=== PATIENT | female | born 1990 | race Caucasian/White ===

== ENCOUNTER 2017-10-24 20:52 | Emergency (ER) | payer OTHER ==
[~2017-10-24] VITALS: Ht 182.9 cm; Wt 149.7 kg
[~2017-10-24 20:52] MED LIST: ABAC300; AMOX500 PO; ARIP10 PO; CEPH500 PO; CETI5; CITA20; CITA20 PO; Cleocin HCl150 MG PO; DIPH50; DIPH50 PO; DOXY100T53 PO; GUAPHELA PO; HYDACE5; HYDACE5 PO; HYDR1TAB94 PO; IBUP800; IBUP800 PO; LEVOTHYROXINE; METF500 PO; METF500C PO; MULVITMINE PO; MUPI2TO TOP; NEOPOLHCSU OT; PENVK500 PO; PRED10 PO; Pepcid40 MG PO; RXCLIN PO; RXHYDACE PO; TRAM50 PO; Ultram50 MG PO; Vancocin HCL1000 M1 IV; Zofran Odt8 MG SL
== END 2017-10-25 00:15 | disposition left against medical advice (07) ==
LOC: ER 20:52
DX: Z53.21 Procedure and treatment not carried out due to patient leaving prior to being seen by health care provider (principal)

== ENCOUNTER 2019-03-03 19:01 | Emergency (ER) | payer OTHER ==
[~2019-03-03] VITALS: Ht 182.9 cm; Wt 156.5 kg
[~2019-03-03 19:01] MED LIST changes: +LEVSOD125 PO; +SPIR25 PO; +Veetids 500500 MG PO
[2019-03-03 20:12] LABS: Influenza A Negative (NEGATIVE); Influenza B Negative (NEGATIVE)
== END 2019-03-03 20:45 | disposition home or self-care (01) ==
LOC: ER 19:01
PROVIDERS: Physician Assistant
DX: J11.1 Influenza due to unidentified influenza virus with other respiratory manifestations (principal); E03.9 Hypothyroidism, unspecified; Z88.1 Allergy status to other antibiotic agents; Z88.0 Allergy status to penicillin; Z79.899 Other long term (current) drug therapy; Z79.84 Long term (current) use of oral hypoglycemic drugs
CPT/HCPCS: 87081; 87147; 87430; 87804; 99283; J1100

== ENCOUNTER 2019-10-07 14:55 | Emergency (ER) | payer BC, OTHER ==
[~2019-10-07] VITALS: Ht 182.9 cm; Wt 170.1 kg
[2019-10-07] MEDS ORDERED: HYDROCODONE-AC1 EAC5 PO (15:53)
[2019-10-07] MEDS ORDERED: Cipro500 MG PO (15:53)
[2019-10-07] MEDS ORDERED: NEOPOLDEXS (15:54)
[2019-10-07] MEDS ORDERED: Percocet 7.5-31 EACH PO (16:24)
== END 2019-10-07 17:54 | disposition home or self-care (01) ==
LOC: ER 14:55
DX: H61.002 Unspecified perichondritis of left external ear (principal); Z88.0 Allergy status to penicillin; Z88.1 Allergy status to other antibiotic agents; E03.9 Hypothyroidism, unspecified; Z79.84 Long term (current) use of oral hypoglycemic drugs; Z79.899 Other long term (current) drug therapy; Z86.14 Personal history of Methicillin resistant Staphylococcus aureus infection
CPT/HCPCS: 64450; 99282-25

== ENCOUNTER 2021-02-12 13:35 | Emergency (ER) | payer OTHER ==
[~2021-02-12] VITALS: Ht 182.9 cm; Wt 170.1 kg
[~2021-02-12 13:35] MED LIST changes: +Cipro500 MG PO; +HYDROCODONE-AC1 EAC5 PO; +NEOPOLDEXS; +Percocet 7.5-31 EACH PO
[2021-02-12 14:46] LABS: BASOPHILS ABSOLUTE AUTO 0.04 K/mm3 (0.00-0.23); BASOPHILS PERCENT AUTO 0 % (0-2); EOSINOPHILS ABSOLUTE AUTO 0.17 K/mm3 (0.00-0.68); EOSINOPHILS PERCENT AUTO 1 % (0-6); Hematocrit 40.1 % (33.0-51.0); Hemoglobin 13.6 g/dL (11.5-16.0); IMMATURE GRAN ABSOLUTE AUTO 0.04 K/mm3 (0.00-0.10); IMMATURE GRAN PERCENT AUTO 0 % (0-1); LYMPHOCYTES ABSOLUTE AUTO 2.44 K/mm3 (0.84-5.20); LYMPHOCYTES PERCENT AUTO 19 % (21-46); MONOCYTES ABSOLUTE AUTO 0.68 K/mm3 (0.16-1.47); MONOCYTES PERCENT AUTO 5 % (4-13); Mean Corpuscular HGB 28.5 pg (26.0-34.0); Mean Corpuscular HGB Conc 33.9 g/dL (31.5-36.5); Mean Corpuscular Volume 84 fL (80-100); Mean Platelet Volume 9.3 fL (9.1-12.4); NEUTROPHILS ABSOLUTE AUTO 9.58 K/mm3 (1.96-9.15); NEUTROPHILS PERCENT AUTO 74 % (41-73); Platelet Count 404 K/mm3 (150-400); RDW Coefficient Variation 13.4 % (11.7-14.2); Red Blood Cell Count 4.78 M/mm3 (3.80-5.20); White Blood Cell Count 12.95 K/mm3 (4.00-11.30)
[2021-02-12 14:53] LABS: IMMATURE RETIC FRACTION 14.1 % (2.3-16.0); RETIC HGB EQUIVALENT 33.7 pg (28.20-36.60); RETICULOCYTE ABSOLUTE 0.1192 M/mm3 (0.0200-0.1100); RETICULOCYTE COUNT PERCENT 2.52 % (0.50-2.50)
[2021-02-12 14:58] LABS: International Normalized Ratio 0.98; Prothrombin Time Results 10.3 Sec (9.7-11.5)
[2021-02-12 15:00] LABS: Source, Urine Clean Catch
[2021-02-12 15:09] LABS: Appearance, Urine Clear (Clear); Bilirubin, Urine Neg (Neg); Blood, Urine Neg (Neg); Color, Urine Yellow (P-Yellow); Glucose Qualitative, Urine Neg (Neg); Ketones, Urine Neg (Neg); Leukocyte Esterase, Urine 1+ (Neg); Nitrite, Urine Neg (Neg); Protein, Urine 1+ (Neg); Specific Gravity, Urine 1.025 (1.003-1.022); Urobilinogen, Urine NORM (Normal)
[2021-02-12 15:19] LABS: Alanine Aminotransfer (ALT/SGP 31 U/L (12-78); Albumin, Blood 3.3 g/dL (3.4-5.0); Albumin/Globulin Ratio 0.7 (0.8-1.8); Alk Phos 76 U/L (50-136); Anion Gap 5 mmol/L (6-16); Aspartate Aminotrans (AST/SGOT 17 U/L (12-37); Bilirubin, Total 0.6 mg/dL (0.1-1.0); Blood Urea Nitrogen 10 mg/dL (8-24); Bun/Creatinine Ratio 14.6 (12.0-20.0); CO2, Blood 26 mmol/L (21-32); Calcium, Blood 9.3 mg/dL (8.5-10.1); Chloride, Blood 105 mmol/L (98-108); Creatinine, Blood 0.69 mg/dL (0.40-1.00); Globulin, Blood 4.7 g/dL (2.2-4.0); Glomerular Filtration Rate >60 (60-); Glucose, Blood 110 mg/dL (70-99); Potassium, Blood 3.7 mmol/L (3.5-5.5); Sodium, Blood 136 mmol/L (136-145)
[2021-02-12 15:31] LABS: Beta HCG, Quantitative, Serum 72343 mIU/mL (0-3)
[2021-02-12 15:40] LABS: Bacteria Few /hpf; Red Blood Cells, Urine 0-2 /hpf (0-2); Squamous Epithelial Cells Mod /hpf (Few); White Blood Cells, Urine 0-2 /hpf (0-5)
[2021-02-12 15:42] LABS: Mucus Mod (0-Heavy)
[2021-02-12] MEDS ORDERED: Bupropion HCl75 MG PO (16:31)
[2021-02-12] MEDS ORDERED: LAMO100 PO (16:32)
[2021-02-12] MEDS ORDERED: EUTHYROX50 MCG PO (16:32)
[2021-02-12] MEDS ORDERED: ONDA4 PO ×2 (19:13→19:36)
[2021-02-12] MEDS ORDERED: PROM12.5S PR ×2 (19:13→19:36)
[2021-02-12] MEDS ORDERED: DICLEGIS DR 101 EAC1 PO ×2 (19:13→19:36)
[2021-02-12] MEDS ORDERED: MONUROL3 GM PO ×2 (19:13→19:36)
== END 2021-02-12 19:39 | disposition home or self-care (01) ==
LOC: ER 13:35
PROVIDERS: Physician Assistant
DX: O21.1 Hyperemesis gravidarum with metabolic disturbance (principal); O99.891 Other specified diseases and conditions complicating pregnancy; R10.30 Lower abdominal pain, unspecified; O99.281 Endocrine, nutritional and metabolic diseases complicating pregnancy, first trimester; E03.9 Hypothyroidism, unspecified; Z88.0 Allergy status to penicillin; Z88.1 Allergy status to other antibiotic agents; Z79.899 Other long term (current) drug therapy; Z3A.08 8 weeks gestation of pregnancy
CPT/HCPCS: 36415; 76817; 80053; 81001; 83615; 84702; 85025; 85045; 85610; 86900; 86901; 87086; 96374; 96375; 99284-25; J2405; J2550; J7030; J7042

== ENCOUNTER 2021-08-04 10:24 | Observation (INO) | payer OTHER ==
[~2021-08-04] VITALS: Ht 182.9 cm; Wt 184.0 kg
[~2021-08-04 10:24] MED LIST changes: +Bupropion HCl75 MG PO; +DICLEGIS DR 101 EAC1 PO; +EUTHYROX50 MCG PO; +LAMO100 PO; +MONUROL3 GM PO; +ONDA4 PO; +PROM12.5S PR
[2021-08-04 11:12] LABS: BASOPHILS ABSOLUTE AUTO 0.02 K/mm3 (0.00-0.23); BASOPHILS PERCENT AUTO 0 % (0-2); EOSINOPHILS ABSOLUTE AUTO 0.13 K/mm3 (0.00-0.68); EOSINOPHILS PERCENT AUTO 1 % (0-6); Hematocrit 36.5 % (33.0-51.0); Hemoglobin 12.3 g/dL (11.5-16.0); IMMATURE GRAN ABSOLUTE AUTO 0.05 K/mm3 (0.00-0.10); IMMATURE GRAN PERCENT AUTO 0 % (0-1); LYMPHOCYTES ABSOLUTE AUTO 1.37 K/mm3 (0.84-5.20); LYMPHOCYTES PERCENT AUTO 12 % (21-46); MONOCYTES ABSOLUTE AUTO 0.71 K/mm3 (0.16-1.47); MONOCYTES PERCENT AUTO 6 % (4-13); Mean Corpuscular HGB 28.6 pg (26.0-34.0); Mean Corpuscular HGB Conc 33.7 g/dL (31.5-36.5); Mean Corpuscular Volume 85 fL (80-100); Mean Platelet Volume 9.1 fL (9.1-12.4); NEUTROPHILS ABSOLUTE AUTO 9.07 K/mm3 (1.96-9.15); NEUTROPHILS PERCENT AUTO 80 % (41-73); Platelet Count 364 K/mm3 (150-400); RDW Coefficient Variation 14.5 % (11.7-14.2); RDW Standard Deviation 44.4 fL (35.1-46.3); White Blood Cell Count 11.35 K/mm3 (4.00-11.30)
[2021-08-04 11:24] LABS: Alanine Aminotransfer (ALT/SGP 22 U/L (12-78); Albumin, Blood 2.5 g/dL (3.4-5.0); Albumin/Globulin Ratio 0.5 (0.8-1.8); Alk Phos 141 U/L (50-136); Anion Gap 8 mmol/L (6-16); Aspartate Aminotrans (AST/SGOT 13 U/L (12-37); Bilirubin, Total 0.6 mg/dL (0.1-1.0); Blood Urea Nitrogen 11 mg/dL (8-24); Bun/Creatinine Ratio 24.1 (12.0-20.0); CO2, Blood 23 mmol/L (21-32); Calcium, Blood 9.2 mg/dL (8.5-10.1); Chloride, Blood 107 mmol/L (98-108); Creatinine, Blood 0.46 mg/dL (0.40-1.00); Globulin, Blood 4.6 g/dL (2.2-4.0); Glomerular Filtration Rate >60 (60-); Glucose, Blood 100 mg/dL (70-99); Potassium, Blood 3.8 mmol/L (3.5-5.5); Sodium, Blood 138 mmol/L (136-145); Total Protein, Blood 7.1 g/dL (6.4-8.2)
[2021-08-04] MEDS ORDERED: LABE100 PO (11:29)
[2021-08-04] MEDS ORDERED: Phenergan25 M1 PO (11:29)
--- NOTE | 2021-08-04 13:41 | NUR ---
24 hour urine started at 1341 with pt first void that was sent to lab for a protein/creatine ratio
[2021-08-04 14:43] LABS: Creatinine, Urine Random 50.4 mg/dL (27.00-270.00); Protein, Urine Random 11.5 mg/dL (0.0-11.9); Protein/Creat Ratio, Ur Random 0.2
--- NOTE | 2021-08-04 17:30 | NUR ---
hr pope went to cafeteria to get pt food, her sweet sucess tray was a hamburger and fixing, grapes, coffee, cottage cheese and milk. pt doesnt drink milk increases blood sugar, cottage cheese has too much sodium cant eat hamburger buns. florian got her food to make a chicken lettuce wrap. with a side of raspberries instead of grapes, pt is happy.
--- NOTE | 2021-08-04 21:15 | NUR ---
assumed care of patient from ANSON Oshea.
[2021-08-05 16:54] LABS: Protein, Urine Quantitative 14.7 mg/dL (0.0-11.9)
--- NOTE | 2021-08-05 17:15 | NUR ---
Printed d/c instructions and teaching reviewed w/pt regarding HTN, precautions, verbalized understanding. Also verbalized understanding of follow up in [facility] and and [facility]. Denies other questions/concerns. Pt d/c'd home ambulatory to care of SO.
== END 2021-08-05 17:20 | disposition home or self-care (01) ==
LOC: OBS 10:24 → BC 10:26 → OBS 10:45 → BC 10:48
PROVIDERS: ADMIT Nurse Practitioner Obstetrics & Gynecology
DX: O14.93 Unspecified pre-eclampsia, third trimester (principal); O44.03 Complete placenta previa NOS or without hemorrhage, third trimester; O24.419 Gestational diabetes mellitus in pregnancy, unspecified control; O99.283 Endocrine, nutritional and metabolic diseases complicating pregnancy, third trimester; E03.9 Hypothyroidism, unspecified; Z3A.33 33 weeks gestation of pregnancy; O99.213 Obesity complicating pregnancy, third trimester; E66.01 Morbid (severe) obesity due to excess calories; E28.2 Polycystic ovarian syndrome; Z88.0 Allergy status to penicillin; Z88.1 Allergy status to other antibiotic agents; Z79.4 Long term (current) use of insulin
CPT/HCPCS: 76819; 80053; 82570; 82947; 84156; 85025; A9270; J1815

== ENCOUNTER 2021-10-18 03:41 | Emergency (ER) | payer OTHER ==
[~2021-10-18] VITALS: Ht 182.9 cm; Wt 179.2 kg
[~2021-10-18 03:41] MED LIST changes: +LABE100 PO; +Phenergan25 M1 PO
[2021-10-18] MEDS ORDERED: CYCL10 PO (05:40)
[2021-10-18] MEDS ORDERED: Percocet 5-3251 EACH PO (05:40)
== END 2021-10-18 06:00 | disposition home or self-care (01) ==
LOC: ER 03:41
DX: M54.50 Low back pain, unspecified (principal); M54.6 Pain in thoracic spine; Z88.0 Allergy status to penicillin; Z88.1 Allergy status to other antibiotic agents; Z79.899 Other long term (current) drug therapy; E03.9 Hypothyroidism, unspecified; E66.01 Morbid (severe) obesity due to excess calories; Z68.43 Body mass index [BMI] 50.0-59.9, adult
CPT/HCPCS: A9270; J1100; J3010

== ENCOUNTER 2022-03-02 09:16 | Emergency (ER) | payer OTHER ==
[~2022-03-02] VITALS: Ht 182.9 cm; Wt 181.4 kg
[~2022-03-02 09:16] MED LIST changes: +CYCL10 PO; +Percocet 5-3251 EACH PO
[2022-03-02] MEDS ORDERED: CYCL10 PO (10:39)
[2022-03-02] MEDS ORDERED: Percocet 5-3251 EACH PO (10:39)
[2022-03-02] MEDS ORDERED: Roxicodone5 MG PO (13:22)
== END 2022-03-02 10:46 | disposition home or self-care (01) ==
LOC: ER 09:16
DX: M54.50 Low back pain, unspecified (principal); E03.9 Hypothyroidism, unspecified; E66.01 Morbid (severe) obesity due to excess calories; Z79.899 Other long term (current) drug therapy; Z79.890 Hormone replacement therapy; Z88.0 Allergy status to penicillin; Z88.1 Allergy status to other antibiotic agents; Z88.8 Allergy status to other drugs, medicaments and biological substances; W19.XXXA Unspecified fall, initial encounter
CPT/HCPCS: 72100; A9270

== ENCOUNTER 2024-03-22 19:26 | Observation (INO) | payer OTHER ==
[~2024-03-22] VITALS: Ht 177.8 cm; Wt 158.0 kg
[~2024-03-22 19:26] MED LIST changes: +Roxicodone5 MG PO
[2024-03-22 19:50] VITALS: BP 132/64
[2024-03-22] MEDS ORDERED: CefTRIAXone 1000 MG Vial IM ONE (21:40)
[2024-03-22 21:44] LABS: Source, Urine Clean Catch
[2024-03-22 21:50] LABS: Appearance, Urine Clear (Clear); Bilirubin, Urine Neg (Neg); Blood, Urine 3+ (Neg); Color, Urine Yellow (P-Yellow); Glucose Qualitative, Urine Neg (Neg); Ketones, Urine 4+ (Neg); Leukocyte Esterase, Urine Neg (Neg); Nitrite, Urine Neg (Neg); Protein, Urine 1+ (Neg); Urobilinogen, Urine NORM (Normal)
[2024-03-22 21:53] LABS: BASOPHILS ABSOLUTE AUTO 0.03 K/mm3 (0.00-0.23); BASOPHILS PERCENT AUTO 0 % (0-2); EOSINOPHILS ABSOLUTE AUTO 0.38 K/mm3 (0.00-0.68); EOSINOPHILS PERCENT AUTO 3 % (0-6); Hematocrit 35.8 % (33.0-51.0); Hemoglobin 11.4 g/dL (11.5-16.0); IMMATURE GRAN ABSOLUTE AUTO 0.04 K/mm3 (0.00-0.10); IMMATURE GRAN PERCENT AUTO 0 % (0-1); LYMPHOCYTES ABSOLUTE AUTO 2.33 K/mm3 (0.84-5.20); LYMPHOCYTES PERCENT AUTO 19 % (21-46); MONOCYTES ABSOLUTE AUTO 0.73 K/mm3 (0.16-1.47); MONOCYTES PERCENT AUTO 6 % (4-13); Mean Corpuscular HGB 28.2 pg (26.0-34.0); Mean Corpuscular HGB Conc 31.8 g/dL (31.5-36.5); Mean Corpuscular Volume 89 fL (80-100); Mean Platelet Volume 8.6 fL (9.1-12.4); NEUTROPHILS ABSOLUTE AUTO 9.07 K/mm3 (1.96-9.15); NEUTROPHILS PERCENT AUTO 72 % (41-73); Platelet Count 276 K/mm3 (150-400); RDW Coefficient Variation 14.6 % (11.7-14.2); RDW Standard Deviation 46.6 fL (35.1-46.3); Red Blood Cell Count 4.04 M/mm3 (3.80-5.20); White Blood Cell Count 12.58 K/mm3 (4.00-11.30)
[2024-03-22 22:04] LABS: Bacteria Few /hpf; Red Blood Cells, Urine 0-2 /hpf (0-2); Squamous Epithelial Cells Few /hpf (Few); Uric Acid Crystals Few /hpf; White Blood Cells, Urine 0-2 /hpf (0-5)
[2024-03-22 22:24] LABS: Albumin, Blood 2.6 g/dL (3.4-5.0); Albumin/Globulin Ratio 0.6 (0.8-1.8); Bilirubin, Total 0.7 mg/dL (0.1-1.0); Bun/Creatinine Ratio 30.8 (12.0-20.0); Calcium, Blood 9.4 mg/dL (8.5-10.1); Creatinine, Blood 0.52 mg/dL (0.40-1.00); Globulin, Blood 4.4 g/dL (2.2-4.0); Potassium, Blood 3.4 mmol/L (3.5-5.5)
[2024-03-23] VITALS: BP 115/59
[2024-03-23] MEDS ORDERED: Lactated Ringer's 1,000 ML IV ONE ×2 (00:41→00:55)
[2024-03-23] MEDS ORDERED: HYDROcodone 5-APAP 325 TAB PO ONE (06:50)
[2024-03-23 07:13] VITALS: BP 108/53
[2024-03-23] MEDS ORDERED: CefTRIAXone Sodium 1,000 MG in NS 100 ML IV ONE (09:55)
== END 2024-03-23 11:10 | disposition home or self-care (01) ==
LOC: OBS 19:26 → BC 19:28 → OBS 19:38 → BC 19:38 → OBS 03-23 03:22 → BC 03-23 03:23 → OBS 03-23 03:23 → BC 03-23 11:10
PROVIDERS: ADMIT Family Medicine
DX: O26.899 Other specified pregnancy related conditions, unspecified trimester (principal); Z3A.00 Weeks of gestation of pregnancy not specified
CPT/HCPCS: 36415; 59025; 76770; 80053; 81001; 81003; 85025; 96361; 96372; 96374; 99214; A9270; G0378; J0696; J7120

== ENCOUNTER → 2024-04-13 | Outpatient (CLI) | payer OTHER ==
[2024-04-13 13:35] LABS: Protein, Urine Quantitative 13.5 mg/dL (0.0-11.9)
== END ==
LOC: LAB 10:45 → LAB SHORT 10:45
PROVIDERS: Advanced Practice Midwife
DX: Z87.59 Personal history of other complications of pregnancy, childbirth and the puerperium (principal)
CPT/HCPCS: 84156

== ENCOUNTER → 2024-04-26 | Outpatient (CLI) | payer OTHER | END | disposition home or self-care (01) | LOC: LAB 12:43 → LAB SHORT 12:43 | DX: Z34.93 Encounter for supervision of normal pregnancy, unspecified, third trimester (principal) | CPT/HCPCS: 87081; 87150 ==

== ENCOUNTER 2024-05-13 15:15 | Inpatient (IN) | payer OTHER ==
[~2024-05-13] VITALS: Ht 177.8 cm; Wt 178.7 kg
[2024-05-13] VITALS (14 sets, daily range): BP systolic 127–195; BP diastolic 55–91
[2024-05-13 15:47] LABS: BASOPHILS ABSOLUTE AUTO 0.02 K/mm3 (0.00-0.23); BASOPHILS PERCENT AUTO 0 % (0-2); EOSINOPHILS PERCENT AUTO 4 % (0-6); Hematocrit 32.1 % (33.0-51.0); Hemoglobin 10.6 g/dL (11.5-16.0); IMMATURE GRAN ABSOLUTE AUTO 0.05 K/mm3 (0.00-0.10); IMMATURE GRAN PERCENT AUTO 1 % (0-1); LYMPHOCYTES ABSOLUTE AUTO 1.43 K/mm3 (0.84-5.20); LYMPHOCYTES PERCENT AUTO 19 % (21-46); MONOCYTES ABSOLUTE AUTO 0.49 K/mm3 (0.16-1.47); MONOCYTES PERCENT AUTO 7 % (4-13); Mean Corpuscular Volume 82 fL (80-100); Mean Platelet Volume 9.1 fL (9.1-12.4); NEUTROPHILS ABSOLUTE AUTO 5.17 K/mm3 (1.96-9.15); NEUTROPHILS PERCENT AUTO 69 % (41-73); Platelet Count 422 K/mm3 (150-400); RDW Coefficient Variation 14.6 % (11.7-14.2); RDW Standard Deviation 43.2 fL (35.1-46.3); Red Blood Cell Count 3.92 M/mm3 (3.80-5.20); White Blood Cell Count 7.46 K/mm3 (4.00-11.30)
[2024-05-13] MEDS ORDERED: Labetalol HCL 5 MG/ML 4ML Injection (Single Dose) ONE (15:59)
[2024-05-13] MEDS ORDERED: Labetalol HCL 5 MG/ML 4ML Injection (Single Dose) IV ONE ×2 (16:00→16:50)
[2024-05-13] MEDS ORDERED: Magnesium Sulf 2 GM/Water 50ML 100 ML IV ONE (16:15)
[2024-05-13 16:18] LABS: Albumin, Blood 2.4 g/dL (3.4-5.0); Albumin/Globulin Ratio 0.5 (0.8-1.8); Bilirubin, Total 0.9 mg/dL (0.1-1.0); Bun/Creatinine Ratio 21.5 (12.0-20.0); Calcium, Blood 8.4 mg/dL (8.5-10.1); Creatinine, Blood 0.74 mg/dL (0.40-1.00); Globulin, Blood 4.6 g/dL (2.2-4.0); Potassium, Blood 4.6 mmol/L (3.5-5.5)
[2024-05-13] MEDS ORDERED: BUPROPION XL150 M1 PO (16:19)
[2024-05-13] MEDS ORDERED: LABE200 PO (16:21)
[2024-05-13] MEDS ORDERED: IBUP600 PO (16:22)
[2024-05-13] MEDS ORDERED: Prozac40 MG PO (16:23)
[2024-05-13] MEDS ORDERED: OSEL75CA PO (16:23)
[2024-05-13] MEDS ORDERED: CefTRIAXone Sodium 1,000 MG in NS 100 ML IV ONE (18:20)
[2024-05-13] MEDS ORDERED: Labetalol HCL 5 MG/ML 4ML Injection (Single Dose) IV PRN ×2 (19:30)
[2024-05-13] MEDS ORDERED: Calcium Gluconate 0.465 mEq/ml 10 ml Vial IV PRN (19:30)
[2024-05-13] MEDS ORDERED: Magnesium Sulfate 500 ML IV SCH (19:30)
[2024-05-13] MEDS ORDERED: Lactated Ringer's 1,000 ML IV SCH (19:30)
[2024-05-13] MEDS ORDERED: HydrALAZINE HCl 20 MG / ML 1ML Vial ONE (19:43)
[2024-05-13] MEDS ORDERED: HydrALAZINE HCl 20 MG / ML 1ML Vial IV ONE ×2 (19:45→22:20)
[2024-05-13] MEDS ORDERED: Magnesium Sulf 2 GM/Water 50ML 50 ML IV ONE ×2 (19:46→19:50)
[2024-05-13] MEDS ORDERED: HydrALAZINE HCl 20 MG / ML 1ML Vial IV SCH ×4 (19:50→22:20)
[2024-05-13 20:53] LABS: International Normalized Ratio 1.03
[2024-05-13] MEDS ORDERED: Albuterol 2.5 MG/3 ML VIAL INH PRN (21:45)
--- NOTE | 2024-05-13 22:18 | NUR ---
LATE ENTRY DR GOLD INFORMED OF SEVERE RANGE BP'S AND ORDERS ARE RECEIVED TO BEGIN SEVERE HTN PROTOCOL. WILL GIVE ADDITIONAL 2GM LOADING DOSE OF MAGNESIUM IV TO TOTAL 6GM DUE TO BMI.
--- NOTE | 2024-05-13 22:21 | NUR ---
LATE ENTRY DR FRANCOIS IS CALLED AND ADVISED OF PT'S HR BELOW 60. ORDERS RECEIVED TO USE IV HYDRALAZINE INSTEAD OF LABETALOL.
[2024-05-13] MEDS ORDERED: Acetaminophen 500 MG Tab PO PRN (22:40)
[2024-05-13] MEDS ORDERED: Ibuprofen 600 MG Tab PO PRN (22:45)
[2024-05-13] MEDS ORDERED: OxyCODONE HCL 5 MG TAB PO PRN (22:55)
[2024-05-14] VITALS (29 sets, daily range): BP systolic 125–180; BP diastolic 60–85
--- NOTE | 2024-05-14 02:24 | NUR ---
AT 2333, PT PUT HER BP CUFF ON BY HERSELF. ELEVATED BP WAS REGISTERED AT 180'S/90'S. RN IN TO ROOM, RETOOK 4 MINUTES LATER AND BP WAS WITHIN A NORMAL RANGE.
--- NOTE | 2024-05-14 03:04 | NUR ---
RN PLACED PT ON 2L 02 VIA NC FOR C/O SHORTNESS OF BREATH DESPITE HAVING A BREATHING TREATMENT FROM RT. UPON AUSCULTATION PT LUNG SOUNDS ARE WHEEZEY THROUGH OUT. PT SPO2 IS 93-95% ON ROOM AIR. NEURO ASSESSMENT COMPLETED ON PT, BRISK REFLEXES, NO CLONUS, DENIES EPIGASTRIC PAIN BUT CONT TO HAVE 4/10 HEADACHE DESPITE PAIN MEDICATION. RR 18
[2024-05-14 04:23] LABS: Creatinine, Urine Random 58.1 mg/dL (27.00-270.00); Protein, Urine Random 10.2 mg/dL (0.0-11.9); Protein/Creat Ratio, Ur Random 0.2
--- NOTE | 2024-05-14 05:27 | NUR ---
LATE ENTRY APPROX 05/13 AT 2030 PT TOOK OWN MEDICATIONS, 600MG OF MOTRIN AND ONE 5MG OXYCODONE FOR PAIN.
[2024-05-14] MEDS ORDERED: Levothyroxine Sodium 0.088 MG Tab PO SCH (06:00)
[2024-05-14] MEDS ORDERED: Oseltamivir Phosphate 75 MG Cap PO SCH (09:00)
[2024-05-14] MEDS ORDERED: LamoTRIgine 100 MG Tab PO SCH (09:00)
[2024-05-14] MEDS ORDERED: FLUoxetine HCL 20 MG CAP PO SCH (09:00)
[2024-05-14] MEDS ORDERED: buPROPion HCL 150 MG TAB.SR.12H PO SCH (09:00)
[2024-05-14] MEDS ORDERED: Labetalol HCL 100 MG TAB PO SCH (09:00)
--- NOTE | 2024-05-14 15:19 | NUR ---
DR WATTS TO ASSUME CARE OF PT FROM DR GOLD AT 1407. DR WATTS AT BEDSIDE AT 1420.
[2024-05-14] MEDS ORDERED: Azithromycin 250 MG Tab PO SCH (16:00)
[2024-05-14] MEDS ORDERED: Enoxaparin 40 MG/0.4 ML SYR SC SCH (16:00)
[2024-05-14 16:15] LABS: BASOPHILS ABSOLUTE AUTO 0.02 K/mm3 (0.00-0.23); BASOPHILS PERCENT AUTO 0 % (0-2); EOSINOPHILS ABSOLUTE AUTO 0.29 K/mm3 (0.00-0.68); EOSINOPHILS PERCENT AUTO 4 % (0-6); Hematocrit 32.2 % (33.0-51.0); Hemoglobin 10.7 g/dL (11.5-16.0); IMMATURE GRAN ABSOLUTE AUTO 0.05 K/mm3 (0.00-0.10); IMMATURE GRAN PERCENT AUTO 1 % (0-1); LYMPHOCYTES ABSOLUTE AUTO 1.21 K/mm3 (0.84-5.20); LYMPHOCYTES PERCENT AUTO 15 % (21-46); MONOCYTES ABSOLUTE AUTO 0.44 K/mm3 (0.16-1.47); MONOCYTES PERCENT AUTO 6 % (4-13); Mean Corpuscular HGB 27.2 pg (26.0-34.0); Mean Corpuscular HGB Conc 33.2 g/dL (31.5-36.5); Mean Corpuscular Volume 82 fL (80-100); Mean Platelet Volume 8.6 fL (9.1-12.4); NEUTROPHILS ABSOLUTE AUTO 5.85 K/mm3 (1.96-9.15); NEUTROPHILS PERCENT AUTO 74 % (41-73); Platelet Count 434 K/mm3 (150-400); RDW Coefficient Variation 14.8 % (11.7-14.2); RDW Standard Deviation 43.9 fL (35.1-46.3); Red Blood Cell Count 3.94 M/mm3 (3.80-5.20); White Blood Cell Count 7.86 K/mm3 (4.00-11.30)
[2024-05-14 16:45] LABS: Albumin, Blood 2.5 g/dL (3.4-5.0); Albumin/Globulin Ratio 0.6 (0.8-1.8); Bilirubin, Total 0.7 mg/dL (0.1-1.0); Bun/Creatinine Ratio 14.2 (12.0-20.0); Calcium, Blood 7.9 mg/dL (8.5-10.1); Creatinine, Blood 0.77 mg/dL (0.40-1.00); Globulin, Blood 4.5 g/dL (2.2-4.0); Potassium, Blood 4.1 mmol/L (3.5-5.5)
[2024-05-14] MEDS ORDERED: Azithromycin 500 MG in NS 250 ML IV SCH (18:00)
[2024-05-14] MEDS ORDERED: Ketorolac Tromethamine 30mg Vial IV PRN (18:10)
[2024-05-14] MEDS ORDERED: CefTRIAXone Sodium 1,000 MG in NS 100 ML IV SCH (18:30)
[2024-05-14] MEDS ORDERED: NIFEdipine 30 MG TabCR PO PRN (21:10)
[2024-05-15] VITALS (15 sets, daily range): BP systolic 128–178; BP diastolic 61–98
[2024-05-15] MEDS ORDERED: Lactated Ringer's 1,000 ML IV ONE (02:51)
[2024-05-15 06:10] LABS: BASOPHILS ABSOLUTE AUTO 0.03 K/mm3 (0.00-0.23); BASOPHILS PERCENT AUTO 0 % (0-2); EOSINOPHILS ABSOLUTE AUTO 0.38 K/mm3 (0.00-0.68); EOSINOPHILS PERCENT AUTO 5 % (0-6); Hematocrit 32.1 % (33.0-51.0); Hemoglobin 10.4 g/dL (11.5-16.0); IMMATURE GRAN ABSOLUTE AUTO 0.04 K/mm3 (0.00-0.10); IMMATURE GRAN PERCENT AUTO 1 % (0-1); LYMPHOCYTES ABSOLUTE AUTO 1.36 K/mm3 (0.84-5.20); LYMPHOCYTES PERCENT AUTO 17 % (21-46); MONOCYTES ABSOLUTE AUTO 0.54 K/mm3 (0.16-1.47); MONOCYTES PERCENT AUTO 7 % (4-13); Mean Corpuscular HGB 26.7 pg (26.0-34.0); Mean Corpuscular HGB Conc 32.4 g/dL (31.5-36.5); Mean Corpuscular Volume 83 fL (80-100); Mean Platelet Volume 8.6 fL (9.1-12.4); NEUTROPHILS ABSOLUTE AUTO 5.68 K/mm3 (1.96-9.15); NEUTROPHILS PERCENT AUTO 71 % (41-73); Platelet Count 444 K/mm3 (150-400); Red Blood Cell Count 3.89 M/mm3 (3.80-5.20); White Blood Cell Count 8.03 K/mm3 (4.00-11.30)
[2024-05-15 06:32] LABS: Albumin, Blood 2.4 g/dL (3.4-5.0); Albumin/Globulin Ratio 0.5 (0.8-1.8); Bilirubin, Total 0.6 mg/dL (0.1-1.0); Bun/Creatinine Ratio 17.6 (12.0-20.0); Creatinine, Blood 0.68 mg/dL (0.40-1.00); Globulin, Blood 4.5 g/dL (2.2-4.0); Magnesium, Blood 2.9 mg/dL (1.6-2.4); Phosphorus, Blood 3.7 mg/dL (2.5-4.9); Total Protein, Blood 6.9 g/dL (6.4-8.2)
--- NOTE | 2024-05-15 09:50 | NUR ---
PT MEDICATED FOR HEADACHE. PT REMOVED O2, TRIALING OFF AT THIS TIME. O2 SATURATIONS RANGING FROM 89-93% ON RA. DR WATTS AT THE BEDSIDE.
--- NOTE | 2024-05-15 10:21 | NUR ---
PT AMBULATES TO THE RESTROOM ON ROOM AIR. ABLE TO MAINTAIN O2 SATURATIONS ABOVE 90% ON ROOM AIR WHILE AMBULATING. DR WATTS REMAINS AT THE BEDSIDE.
[2024-05-15] MEDS ORDERED: Triamcinolone Inj Susp 40 MG / ML 1ML Vial INJ ONE (10:49)
--- NOTE | 2024-05-15 11:36 | NUR ---
CONTACTED NURSING DRUM TENDER REGARDING ORDERS FOR TRANSFER AND BED ASSIGNMENT. WILL UPDATE WHEN BED IS AVAILABLE. UPDATED PT ON PLAN. PT PROVIDED WITH FRESH CUP OF WATER AND ICE REQUESTED.
--- NOTE | 2024-05-15 12:32 | NUR ---
DR WATTS AND RESIDENT TO BEDSIDE TO ADMINISTER OCCIPITAL NERVE BLOCK.
--- NOTE | 2024-05-15 14:38 | NUR ---
REPORT GIVEN TO CARIE PT TO BE TRANSPORTED TO 305.
[2024-05-15] MEDS ORDERED: NS 250 ML IV PRN (17:20)
--- NOTE | 2024-05-15 19:58 | NUR ---
PATIENT ARRIVED TO UNIT AT 1450, REPORTS SHORTNESS OF BREATH REMAINS UNCHANGED THIS AFTERNOON, NOT WORSE OR BETTER. SHE REPORTS HEADACHE CONTINUES BUT SHE WANTS TO SLEEP AND SEE IF IT GETS BETTER. PATIENT LATER MEDICATED FOR HEADACHE PER EMAR. SHE IS UP AD CARMEN TO BATHROOM AND HAD 1 MEDIUM BOWEL MOVEMENT THIS AFTERNOON. AND INFANT SON AT BEDSIDE. SHE IS AOX4 AND AGREABLE TO CARE.
[2024-05-15] MEDS ORDERED: Oseltamivir Phosphate 75 MG Cap PO SCH (21:00)
[2024-05-15] MEDS ORDERED: NIFEdipine 30 MG TabCR PO SCH (21:00)
[2024-05-16 03:56] VITALS: BP 144/76
--- NOTE | 2024-05-16 04:28 | NUR ---
SHIFT SUMMARY. PATIENT A&OX4. PATIENT CALLS APPROPRIATELY AND IS ABLE TO MAKE HER NEEDS KNOWN. PATIENT RECEIVED OCCIPITAL BLOCK ON 05/15/24 FOR HEADACHES-PATIENT C/O HEADACHE THIS AM-MEDICATED PER EMAR-SEE ORDERS. PATIENT EXPRESSES A COUGH THAT IS HARSH BUT NOT COUGHING MUCH UP-PATIENT WOULD LIKE TO TALK ABOUT MUCINEX-WILL RELAY TO DAYSHIFT NURSE. PATIENT HAS BABY IN ROOM WITH -POSTPARDUM X8DAYS. PATIENT IS ON ISOLATION FOR FLU. PATIENT USING 1-2LPM VIA NASAL CANNULA FOR SOB-NO NOTED DESATTING THIS SHIFT. BED IS LOCKED IN THE LOWEST POSITION WITH CALL LIGHT IN REACH. CARE IS ONGOING.
[2024-05-16 05:02] LABS: BASOPHILS ABSOLUTE AUTO 0.03 K/mm3 (0.00-0.23); BASOPHILS PERCENT AUTO 0 % (0-2); EOSINOPHILS ABSOLUTE AUTO 0.37 K/mm3 (0.00-0.68); EOSINOPHILS PERCENT AUTO 5 % (0-6); Hematocrit 34.2 % (33.0-51.0); Hemoglobin 11.1 g/dL (11.5-16.0); IMMATURE GRAN ABSOLUTE AUTO 0.04 K/mm3 (0.00-0.10); IMMATURE GRAN PERCENT AUTO 1 % (0-1); LYMPHOCYTES ABSOLUTE AUTO 1.71 K/mm3 (0.84-5.20); LYMPHOCYTES PERCENT AUTO 21 % (21-46); MONOCYTES ABSOLUTE AUTO 0.46 K/mm3 (0.16-1.47); MONOCYTES PERCENT AUTO 6 % (4-13); Mean Corpuscular HGB 26.7 pg (26.0-34.0); Mean Corpuscular HGB Conc 32.5 g/dL (31.5-36.5); Mean Corpuscular Volume 82 fL (80-100); Mean Platelet Volume 8.4 fL (9.1-12.4); NEUTROPHILS ABSOLUTE AUTO 5.63 K/mm3 (1.96-9.15); NEUTROPHILS PERCENT AUTO 68 % (41-73); Platelet Count 511 K/mm3 (150-400); RDW Coefficient Variation 14.7 % (11.7-14.2); Red Blood Cell Count 4.16 M/mm3 (3.80-5.20); White Blood Cell Count 8.24 K/mm3 (4.00-11.30)
[2024-05-16 05:43] LABS: Albumin, Blood 2.7 g/dL (3.4-5.0); Albumin/Globulin Ratio 0.6 (0.8-1.8); Bilirubin, Total 0.6 mg/dL (0.1-1.0); Bun/Creatinine Ratio 16.3 (12.0-20.0); Calcium, Blood 8.6 mg/dL (8.5-10.1); Creatinine, Blood 0.61 mg/dL (0.40-1.00); Globulin, Blood 4.8 g/dL (2.2-4.0); Potassium, Blood 4.2 mmol/L (3.5-5.5); Total Protein, Blood 7.5 g/dL (6.4-8.2)
[2024-05-16 08:42] VITALS: BP 161/79
[2024-05-16] MEDS ORDERED: Polyethylene Glycol 3350 17 gm PO SCH (09:00)
[2024-05-16] MEDS ORDERED: Labetalol HCL 100 MG TAB PO SCH ×2 (09:00→10:00)
[2024-05-16] MEDS ORDERED: Azithromycin 500 MG in NS 250 ML IV SCH (10:00)
[2024-05-16] MEDS ORDERED: Azithromycin 500 MG in NS 250 ML IV ONE (10:35)
[2024-05-16 11:20] VITALS: BP 135/69
[2024-05-16] MEDS ORDERED: NIFE30ER PO (12:54)
[2024-05-16] MEDS ORDERED: CEFP200 PO (12:54)
[2024-05-16] MEDS ORDERED: VISBIOME 112.51 EACH PO (12:54)
[2024-05-16] MEDS ORDERED: Percocet 5-3251 EACH PO (12:55)
[2024-05-16] MEDS ORDERED: NAPROXEN250 M1 PO (12:55)
--- NOTE | 2024-05-16 13:50 | NUR ---
DISCHARGE SUMMARY PATIENT WITH NO ACUTE EVENTS TODAY, SHE REPORTS HEADACHE IS 2/10 AND GETTING BETTER, SHE DECLINED PAIN MEDICATION FOR THIS ENGINEER SERGEANT DURING SHIFT. SHE IS UP AD CARMEN IN ROOM AND DID NOT REQUIRE O2 LAST NIGHT. THIS AM SHE WOKE ONCE AND WAS 90% ROOM AIR AND PUT ON O2 FOR SHORT PERIOD. SINCE THEN SHE HAS NOT REQUIRED ANY O2 AND REPORTS SHORTNESS OF BREATH IS GETTING BETTER. PATIENT MEDICATION AND EDUCATION PACKET PRINTED AND SIGNED BY PATIENT. IV REMOVED BY ENGINEER SERGEANT. EDUCATION REVIEWED WITH PATIENT AND SHE V/U. PT LEFT UNIT AT 1345 WITH , SON AND CHIP APPLYING MACHINE TENDER DANA Rodriguez. SHE IS LEAVING HOSPITAL VIA PRIVATE VEHICLE.
== END 2024-05-16 13:47 | disposition home or self-care (01) | DRG 776 ==
LOC: ER 15:15 → BC 18:21 → MEDS 05-15 14:49 → ENPENDDIS 05-16 11:26 → MEDS 05-16 13:47
PROVIDERS: Physician Assistant; ADMIT Obstetrics & Gynecology
DX: O14.95 Unspecified pre-eclampsia, complicating the puerperium (principal); J10.00 Influenza due to other identified influenza virus with unspecified type of pneumonia; J96.01 Acute respiratory failure with hypoxia; Z68.43 Body mass index [BMI] 50.0-59.9, adult; O99.53 Diseases of the respiratory system complicating the puerperium; R51.9 Headache, unspecified; O99.285 Endocrine, nutritional and metabolic diseases complicating the puerperium; E03.9 Hypothyroidism, unspecified; O99.345 Other mental disorders complicating the puerperium; F41.9 Anxiety disorder, unspecified; F32.A Depression, unspecified; E66.01 Morbid (severe) obesity due to excess calories; Z79.899 Other long term (current) drug therapy; Z79.891 Long term (current) use of opiate analgesic; Z79.1 Long term (current) use of non-steroidal anti-inflammatories (NSAID); Z79.890 Hormone replacement therapy
CPT/HCPCS: 36415; 71046; 71260; 80053; 82570; 83615; 83735; 83880; 84100; 84145; 84156; 84484; 85025; 85379; 85384; 85610; 85730; 87040; 93005; 93010; 93306; 94640; 94664; 94760; 94762; 96365; 96375; 99285-25; A9270; J0360; J0456; J0696; J1650; J1885; J3301; J3475; J7050; J7120; Q9967